=== PATIENT | female | born 1990 | race Caucasian/White ===

== ENCOUNTER 2016-09-17 17:12 | Emergency (ER) | payer BC, MEDICAID ==
[2016-09-17 17:49] VITALS: BP 117/71
--- NOTE | 2016-09-17 17:55 | UC ---
Ear Complaint HPI - HPI Summary HPI Summary: feels like here hearing is muffles---gets piercing pain in ears and has nasal congestion has been going on for almost 2 weeks flonase for 1 week with out relief - History of Current Complaint Hx Obtained From: Patient Hx Last Menstrual Period: 09/17/16 ?: No Onset/Duration: Gradual Onset, Lasting Weeks - 2, Still Present Severity Initially: Mild Severity Currently: Moderate Pain Intensity: 5 Pain Scale Used: 0-10 Numeric Alleviating Factors: Nothing Associated Signs/Symptoms: Positive: Hearing Loss, URI Symptoms Related History: Smoking <Patsy Fontaine - Last Filed: 09/17/16 19:42> <Melani Jon - Last Filed: 09/17/16 20:07> - History of Current Complaint Chief Complaint: UCEar Stated Complaint: CLOGGED EARS Time Seen by Provider: 09/17/16 17:42 - Allergies/Home Medications Allergies/Adverse Reactions: Allergies Allergy/AdvReac Type Severity Reaction Status Date / Time No Known Allergies Allergy Verified 03/04/15 19:29 Home Medications: Home Medications Fluticasone NASAL SPRAY 50MCG* [Flonase NASAL SPRAY 50MCG*] 2 spray BOTH NARES DAILY 09/17/16 [History Confirmed 09/17/16] Ibuprofen [Advil] 600 09/17/16 [History] PMH/Surg Hx/FS Hx/Imm Hx Previously Healthy: No Endocrine History Of: Reports: Thyroid Disease - hypothyroidism Respiratory History Of: Reports: Asthma - exercise induced asthma Neurological History Of: Reports: Migraine - uses OTC tx - Surgical History Surgical History: Yes Surgery Procedure, Year, and Place: ear tubes as a child - Family History Known Family History: Positive: None Family History: no medical issues in family lineage - Social History Occupation: Student Lives: With Family Alcohol Use: Occasionally Substance Use Type: None Smoking Status (MU): Light Every Day Tobacco Smoker Type: Cigarettes Have You Smoked in the Last Year: Yes Household Exposure Type: Cigarettes Cessation Counseling: Counseled 3+Min - 10 Min - Immunization History Most Recent Influenza Vaccination: 03/02/15 Most Recent Tetanus Shot: UTD Most Recent Pneumonia Vaccination: has not received <Patsy Fontaine - Last Filed: 09/17/16 19:42> Review of Systems Constitutional: Negative Skin: Negative Eyes: Negative ENT: Ear Ache, Nasal Discharge Respiratory: Negative Cardiovascular: Negative Gastrointestinal: Negative Genitourinary: Negative Motor: Negative Neurovascular: Negative Musculoskeletal: Negative Neurological: Headache - sinus headache Psychological: Negative All Other Systems Reviewed And Are Negative: Yes <Patsy Fontaine - Last Filed: 09/17/16 19:42> Physical Exam Triage Information Reviewed: Yes Appearance: Well-Appearing, No Pain Distress, Well-Nourished Vital Signs: Initial Vital Signs Temp 99.2 F 09/17/16 17:44 Pulse 97 09/17/16 17:44 Resp 18 09/17/16 17:44 BP 117/71 09/17/16 17:44 Pulse Ox 99 09/17/16 17:44 Vital Signs Reviewed: Yes Eye Exam: Normal Eyes: Positive: Conjunctiva Clear ENT Exam: Normal ENT: Positive: Normal ENT inspection, Hearing grossly normal, Pharynx normal, Nasal congestion, Nasal drainage, TMs normal. Negative: Tonsillar swelling, Tonsillar exudate, Trismus, Muffled/hoarse voice Dental Exam: Normal Neck exam: Normal Neck: Positive: Supple, Nontender Respiratory Exam: Normal Respiratory: Positive: Chest non-tender, Lungs clear, Normal breath sounds, No respiratory distress, No accessory muscle use Cardiovascular Exam: Normal Cardiovascular: Positive: RRR, No Murmur, Pulses Normal, Brisk Capillary Refill Musculoskeletal Exam: Normal Musculoskeletal: Positive: Strength Intact, ROM Intact, No Edema Neurological Exam: Normal Neurological: Positive: Alert, Muscle Tone Normal Psychological Exam: Normal Skin Exam: Normal <Patsy Fontaine - Last Filed: 09/17/16 19:42> Vital Signs: Initial Vital Signs Temp 99.2 F 09/17/16 17:44 Pulse 97 09/17/16 17:44 Resp 18 09/17/16 17:44 BP 117/71 09/17/16 17:44 Pulse Ox 99 09/17/16 17:44 <Melani Jon - Last Filed: 09/17/16 20:07> Ear Complaint Course/Dx - Course Course Of Treatment: continue flonase add augmentin and prn diflucan, increase fluids, smoking cesation information and encourgament, follow with [facility] - Differential Dx/Diagnosis Differential Diagnosis/HQI/PQRI: Cellulitis, Cerumen Impaction, Otitis Externa, Otitis Media, Perforated TM, Trigeminal Nueralgia Provider Diagnoses: Acute rhinosinuisitis, nicotine dependant <Patsy Fontaine - Last Filed: 09/17/16 19:42> Discharge <Patsy Fontaine - Last Filed: 09/17/16 19:42> <Melani Jon - Last Filed: 09/17/16 20:07> - Discharge Plan Condition: Stable Disposition: HOME Prescriptions: Amoxicillin/Clavulanate TAB* [Augmentin TAB 875*] 875 mg PO BID #20 tab Fluconazole [Diflucan 150 MG (NF)] 150 mg PO ONCE #2 tab Patient Education Materials: How to Stop Smoking (ED), Sinusitis (ED) Referrals: [facility] [Outside] - If Needed Attestation Statement Provider Attestation: I was available for consult. This patient was seen by the VANI. The patient was not presented to, seen by, or examined by me. -Rachel <Melani Jon - Last Filed: 09/17/16 20:07>
== END 2016-09-17 18:08 | disposition home or self-care (01) ==
LOC: UCEAST 17:12
DX: J01.90 Acute sinusitis, unspecified (principal); F17.210 Nicotine dependence, cigarettes, uncomplicated; E03.9 Hypothyroidism, unspecified; J45.990 Exercise induced bronchospasm
CPT/HCPCS: 99212; G0463